=== PATIENT | female | born 1960 | race African-American/Black ===

== ENCOUNTER 2016-06-03 14:17 | Emergency (ER) | payer SELFPAY ==
[~2016-06-03] VITALS: Ht 157.5 cm; Wt 86.2 kg
[~2016-06-03 14:17] MED LIST: AMLO10TA2 PO; BENZ100C PO; CHOL100013 PO; CYCL5TAB PO; HYDR-971 PO; LISI1TAB7 PO; NAPR500T8 PO; PRED50TA PO; PROAIR HFA8.5 GM INH; SOFO1TAB PO
[2016-06-03 14:36] VITALS: BP 164/93
[2016-06-03] MEDS ORDERED: D-ME118S2 PO (15:06)
[2016-06-03] MEDS ORDERED: AZIT250T6 PO (15:06)
[2016-06-03] MEDS ORDERED: PROAIR HFA8.5 GM INH (15:06)
--- NOTE | 2016-06-03 15:07 | PHYS DOC ---
Past Medical History Past Medical History: Hypertension, Hepatitis, Other Additional Past Medical Histor: VITAMIN D DEFICIENCY; Hep C Past Surgical History: Cholecystectomy, , Hysterectomy, Tubal ligation Alcohol Use: Rarely Drug Use: Marijuana Adult General Chief Complaint Chief Complaint: COUGH HPI HPI Patient is a 56 year old female presents emergency Department today reporting a harsh cough is been ongoing for the past 5 days. Patient also reports nasal congestion. She denies fevers, bilateral, chills. Patient denies history of cardiopulmonary disease. She states that she is a nonsmoker. She denies antibiotics within the past 90 days. She denies foreign travel also past 90 days. Patient was hospitalized overnight here approximately 16 days ago for a trauma observation in which she recovered without any complications. Review of Systems Review of Systems Constitutional: Denies fever or chills [] Eyes: Denies change in visual acuity, redness, or eye pain [] HENT: Denies nasal congestion or sore throat [] Respiratory: Denies cough or shortness of breath [] Cardiovascular: No additional information not addressed in HPI [] GI: Denies abdominal pain, nausea, vomiting, bloody stools or diarrhea [] : Denies dysuria or hematuria [] Musculoskeletal: Denies back pain or joint pain [] Integument: Denies rash or skin lesions [] Neurologic: Denies headache, focal weakness or sensory changes [] Endocrine: Denies polyuria or polydipsia [] Allergies Allergies Allergies Coded Allergies Type Severity Reaction Last Updated Verified Latex, Natural Rubber Allergy Intermediate 02/22/16 Yes adhesive Allergy Intermediate 02/22/16 Yes Physical Exam Physical Exam Constitutional: Well developed, well nourished, no acute distress, non-toxic appearance. [] HENT: Normocephalic, atraumatic, bilateral external ears normal, oropharynx moist, no oral exudates, nose normal. [] Eyes: PERRLA, EOMI, conjunctiva normal, no discharge. [] Neck: Normal range of motion, no tenderness, supple, no stridor. [] Cardiovascular:Heart rate regular rhythm, no murmur [] Lungs & Thorax: Bilateral breath sounds clear to auscultation [] Abdomen: Bowel sounds normal, soft, no tenderness, no masses, no pulsatile masses. [] Skin: Warm, dry, no erythema, no rash. [] Back: No tenderness, no CVA tenderness. [] Extremities: No tenderness, no cyanosis, no clubbing, ROM intact, no edema. [] Neurologic: Alert and oriented X 3, normal motor function, normal sensory function, no focal deficits noted. [] Psychologic: Affect normal, judgement normal, mood normal. [] Current Patient Data Vital Signs Vital Signs Date Time Temp Pulse Resp B/P Pulse Ox O2 Delivery O2 Flow Rate FiO2 06/03/16 14:36 100.4 105 24 164/93 96 Room Air 100.4 EKG EKG [] Radiology/Procedures Radiology/Procedures [] Course & Med Decision Making Course & Med Decision Making Pertinent Labs and Imaging studies reviewed. (See chart for details) [] Dragon Disclaimer Dragon Disclaimer This electronic medical record was generated, in whole or in part, using a voice recognition dictation system. Departure Departure Impression: Primary Impression: Bronchitis Disposition: 01 HOME, SELF-CARE Condition: GOOD Referrals: PENNIE COSTELLO (PCP) Patient Instructions: Acute Bronchitis, [id number] Additional Instructions: 1. Take the medications prescribed. 2. Review the discharge instructions provided for self-care and reasons to return the emergency department. 3. Contact your primary care doctor's office in the morning to schedule follow- up appointment to be seen within the next 5-7 days. Scripts Albuterol Sulfate (Proair Hfa Inhaler)8.5 Gm Hfa.aer.ad1 Puff INH PRN Q6HRS PRN SHORTNESS OF BREATH #1 INHALER Ref 0 Prov:CAMILO ALVAREZ 06/03/16 D-Methorphan Hb/Prometh Hcl (Promethazine-Dm Syrup)118 Ml Syrup5 Ml PO PRN Q4HRS COUGH #120 ML Prov:CAMILO ALVAREZ 06/03/16 Azithromycin (Azithromycin Tablet)250 Mg Tablet1 Pkg PO UD #6 TAB Prov:CAMILO ALVAREZ 06/03/16 CAMILO ALVAREZ Jun 03, 2016 15:07
== END 2016-06-03 15:13 | disposition home or self-care (01) ==
LOC: ER 14:17
DX: J40 Bronchitis, not specified as acute or chronic (principal); I10 Essential (primary) hypertension; F12.10 Cannabis abuse, uncomplicated; Z91.040 Latex allergy status; Z91.048 Other nonmedicinal substance allergy status; Z86.19 Personal history of other infectious and parasitic diseases
CPT/HCPCS: 99283

== ENCOUNTER 2017-03-29 07:22 | Emergency (ER) | payer SELFPAY | END 2017-03-29 08:01 | disposition home or self-care (01) | LOC: ER 07:22 | DX: B34.9 Viral infection, unspecified (principal); I10 Essential (primary) hypertension; F12.10 Cannabis abuse, uncomplicated; Z90.49 Acquired absence of other specified parts of digestive tract; Z90.710 Acquired absence of both cervix and uterus; Z98.51 Tubal ligation status; Z91.040 Latex allergy status; Z91.048 Other nonmedicinal substance allergy status | CPT/HCPCS: 99283 ==

== ENCOUNTER 2017-10-30 04:51 | Emergency (ER) | payer SELFPAY ==
[~2017-10-30] VITALS: Ht 157.5 cm; Wt 88.9 kg
[~2017-10-30 04:51] MED LIST changes: +AZIT250T6 PO; +D-ME118S2 PO; +DOCU-109 PO; +HYDR-2758 PO; +LISI10TA2 PO; +OSEL75CA PO
[2017-10-30 04:53] VITALS: BP 154/86
[2017-10-30] MEDS ORDERED: DIPH25CA58 PO (05:10)
[2017-10-30] MEDS ORDERED: FAMO-63 PO (05:10)
--- NOTE | 2017-10-30 05:10 | PHYS DOC ---
Past Medical History Past Medical History: Hypertension, Hepatitis, Other Additional Past Medical Histor: VITAMIN D DEFICIENCY; Hep C Past Surgical History: Cholecystectomy, , Hysterectomy, Tubal ligation Alcohol Use: Rarely Drug Use: None Adult General Chief Complaint Chief Complaint: SKIN PROBLEM HPI HPI 57-year-old female presents with pruritic rash to upper legs and abdomen and back 2 days. Patient reports she recently started taking potassium when her doctor noted she was low on routine labs. Patient also reports she has recently started using Dove soap. Patient also reports she has a puppy at home. Denies fever or chills. Denies that anyone else in her household has similar symptoms. Denies difficulty breathing or sensation that her throat is closing. Review of Systems Review of Systems Constitutional: Denies fever or chills [] Eyes: Denies change in visual acuity, redness, or eye pain [] HENT: Denies nasal congestion or sore throat [] Respiratory: Denies cough or shortness of breath [] Cardiovascular: Denies chest pain or palpitations GI: Denies abdominal pain, nausea, vomiting, or diarrhea [] : Denies dysuria or hematuria [] Musculoskeletal: Denies back pain or joint pain [] Integument: Reports rash and pruritus Neurologic: Denies headache, focal weakness or sensory changes [] Complete systems were reviewed and found to be within normal limits, except as documented in this note. Current Medications Current Medications Current Medications Medications (Trade) Dose Ordered Sig/Varun Start Time Stop Time Status Last Admin Dose Admin Diphenhydramine HCl (Benadryl) 50 mg 1X ONCE 10/30/17 05:30 10/30/17 05:31 10/30/17 05:20 50 MG Famotidine (Pepcid) 20 mg 1X ONCE 10/30/17 05:30 10/30/17 05:31 10/30/17 05:19 20 MG Allergies Allergies Allergies Coded Allergies Type Severity Reaction Last Updated Verified Latex, Natural Rubber Allergy Intermediate 08/16/17 Yes adhesive Allergy Intermediate 08/16/17 Yes Physical Exam Physical Exam Constitutional: Well developed, well nourished, no acute distress, non-toxic appearance. [] HENT: Normocephalic, atraumatic Eyes: conjunctiva normal, no discharge. [] Neck: Normal range of motion, supple, Lungs & Thorax: Atraumatic, no respiratory distress Skin: Warm, dry, urticarial rash to trunk and bilateral upper extremity and bilateral thighs Extremities: No tenderness, ROM intact, no edema. [] Neurologic: Alert and oriented X 3, normal motor function, normal sensory function, no focal deficits noted. [] Psychologic: Affect normal, judgement normal, mood normal. [] Current Patient Data Vital Signs Vital Signs Date Time Temp Pulse Resp B/P (MAP) Pulse Ox O2 Delivery O2 Flow Rate FiO2 10/30/17 04:53 97.6 74 20 154/86 (108) 97 Room Air 97.6 EKG EKG [] Radiology/Procedures Radiology/Procedures [] Course & Med Decision Making Course & Med Decision Making Patient presents with history of present illness and physical exam consistent for urticaria. Patient has several possible allergens. Patient advised to discontinue potassium tablets and to increase potassium intake from food. Patient also advised to discontinue new soap. Patient offered steroid which she refused. Patient therefore treated with antihistamines including Benadryl and Pepcid. No signs of respiratory compromise or involvement. Patient stable for discharge with outpatient follow-up with PCP. Discussed findings and plan with patient and family, who acknowledge understanding and agreement. Dragon Disclaimer Dragon Disclaimer This electronic medical record was generated, in whole or in part, using a voice recognition dictation system. Departure Departure Impression: Primary Impression: Urticaria Disposition: 01 HOME, SELF-CARE Condition: STABLE Referrals: PENNIE COSTELLO (PCP) Patient Instructions: Hives, Potassium Content of Foods Scripts Famotidine (PEPCID) 20 Mg Tablet 20 MG PO BID, #30 TAB Prov: JACE RAMIREZ DO 10/30/17 Diphenhydramine Hcl (BENADRYL) 25 Mg Capsule 25 MG PO Q6HRS PRN for ITCHING, #30 CAP Prov: JACE RAMIREZ DO 10/30/17 JACE RAMIREZ DO Oct 30, 2017 05:10
[2017-10-30] MEDS ORDERED: diphenhydrAMINE HCL 25 MG CAPSULE PO ONE (05:30)
[2017-10-30] MEDS ORDERED: FAMOTIDINE 20 MG TABLET. PO ONE (05:30)
== END 2017-10-30 05:31 | disposition home or self-care (01) ==
LOC: ER 04:51
DX: L50.9 Urticaria, unspecified (principal); I10 Essential (primary) hypertension; Z86.19 Personal history of other infectious and parasitic diseases; Z88.8 Allergy status to other drugs, medicaments and biological substances; Z91.040 Latex allergy status
CPT/HCPCS: 99283; Q0163

== ENCOUNTER 2017-12-05 05:53 | Emergency (ER) | payer SELFPAY ==
[~2017-12-05] VITALS: Ht 157.5 cm; Wt 90.7 kg
[~2017-12-05 05:53] MED LIST changes: -AMLO10TA2 PO; +AMLO10TA6 PO; +DIPH25CA58 PO; +FAMO-63 PO
[2017-12-05 06:15] VITALS: BP 184/98
[2017-12-05] MEDS: HYDROcodone/APAP 5/325MG 1 TAB TABLET PO ONE (06:25)
[2017-12-05] MEDS: CYCLOBENZAPRINE 10 MG TABLET. PO ONE (06:25)
--- NOTE | 2017-12-05 06:34 | RAD ---
Indication:right shoulder pain no known injury TECHNIQUE: 3 views of the right shoulder COMPARISON:None FINDINGS:No acute fracture or dislocation. The acromioclavicular and glenohumeral joints are intact. Visualized right lung is clear. No soft tissue abnormality. IMPRESSION: No acute findings. No significant evidence of arthritic process. Electronically signed by: Robert Tang DO (12/05/2017 6:30 AM) [facility]
--- NOTE | 2017-12-05 06:35 | PHYS DOC ---
Past Medical History Past Medical History: Hypertension, Hepatitis, Other Additional Past Medical Histor: VITAMIN D DEFICIENCY; Hep C Past Surgical History: Cholecystectomy, , Hysterectomy, Tubal ligation Alcohol Use: Rarely Drug Use: None Adult General Chief Complaint Chief Complaint: [facility] HPI Patient is a 57 year old female who presents with right shoulder and trapezius muscle pain over the last 7-10 days. Pain is worse with motion of the right arm and the head. No trauma. Denies similar symptoms previously. No fever/ chills. No chest pain or dyspnea. Denies additional complaints. Review of Systems Review of Systems Constitutional: Denies fever HENT: Denies nasal congestion Respiratory: Denies cough or shortness of breath Cardiovascular: No additional information not addressed in HPI Musculoskeletal: Denies back pain Integument: Denies rash or skin lesions Neurologic: Denies headache All other systems were reviewed and found to be within normal limits, except as documented in this note. Current Medications Current Medications Current Medications Medications (Trade) Dose Ordered Sig/Varun Start Time Stop Time Status Last Admin Dose Admin Acetaminophen/ Hydrocodone Bitart (Lortab 5/325) 1 tab 1X ONCE 12/05/17 06:30 12/05/17 06:31 DC 12/05/17 06:25 1 TAB Cyclobenzaprine HCl (Flexeril) 10 mg 1X ONCE 12/05/17 06:30 12/05/17 06:31 DC 12/05/17 06:25 10 MG Allergies Allergies Allergies Coded Allergies Type Severity Reaction Last Updated Verified Latex, Natural Rubber Allergy Intermediate 08/16/17 Yes adhesive Allergy Intermediate 08/16/17 Yes Physical Exam Physical Exam Constitutional: Well developed, well nourished, no acute distress, non-toxic appearance HENT: Normocephalic, atraumatic, bilateral external ears normal, oropharynx moist Eyes: PERRLA, EOMI, conjunctiva normal Neck: ROM of side bending of head and rotation of the head is limited to the right compared to left 2/2 pain. Cardiovascular:Heart rate regular rhythm, no murmur Lungs & Thorax: Bilateral breath sounds clear to auscultation Skin: Warm, dry, no erythema, no rash Extremities: Patient can ROM the right shoulder but abduction is limited to 90 degrees 2/2 pain. + palpable muscles spasm and TTP over right trapezius muscle. 2+ radial pulses in right UE. 5/5 motor strength. Sensation to light touch intact over all dermatomes Neurologic: Alert and oriented X 3, normal motor function, normal sensory function, no focal deficits Psychologic: Affect normal Current Patient Data Vital Signs Vital Signs Date Time Temp Pulse Resp B/P (MAP) Pulse Ox O2 Delivery O2 Flow Rate FiO2 12/05/17 06:15 98.2 85 18 184/98 (126) 100 Room Air 98.2 EKG EKG NSR. No STEMI Interpretation Time: 06:30 Radiology/Procedures Radiology/Procedures FINDINGS:No acute fracture or dislocation. The acromioclavicular and glenohumeral joints are intact. Visualized right lung is clear. No soft tissue abnormality. IMPRESSION: No acute findings. No significant evidence of arthritic process. Course & Med Decision Making Course & Med Decision Making Pertinent Labs and Imaging studies reviewed. (See chart for details) Patient is seen in the ER for MSK right shoulder pain which she has had for 10- 14 days. Already has scheduled f/u with PCP but states pain was not relieved with OTC meds at home. EKG normal. Trop not elevated. Physical exam consistent with muscle spasm and musculoskeletal pain symptoms. She is give one norco and one flexeril in the ER. Discharged home on the same. Advised to keep her scheduled appointment. Return to ER for new or worsening symptoms. Opiate precautions discussed. Patient is accompanied by her who is driving her home this morning. Dragon Disclaimer Dragon Disclaimer This electronic medical record was generated, in whole or in part, using a voice recognition dictation system. Departure Departure Referrals: NO PCP (PCP) SUBHASH VENTURA DO Dec 05, 2017 06:35
--- NOTE | 2017-12-05 06:45 | EKG ---
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
[2017-12-05] MEDS ORDERED: IBUP-1060 PO (06:48)
[2017-12-05] MEDS ORDERED: HYDR-971 PO (06:48)
[2017-12-05] MEDS ORDERED: CYCL10TA2 PO (06:48)
== END 2017-12-05 06:57 | disposition home or self-care (01) ==
LOC: ER 05:53
DX: M25.511 Pain in right shoulder (principal); M79.601 Pain in right arm; I10 Essential (primary) hypertension; Z90.49 Acquired absence of other specified parts of digestive tract; Z90.710 Acquired absence of both cervix and uterus; Z98.890 Other specified postprocedural states; Z98.51 Tubal ligation status; Z88.8 Allergy status to other drugs, medicaments and biological substances; Z91.040 Latex allergy status
CPT/HCPCS: 73030; 84484; 93005; 99284

== ENCOUNTER 2018-03-27 08:25 | Emergency (ER) | payer SELFPAY ==
[~2018-03-27] VITALS: Ht 157.5 cm; Wt 90.7 kg
[~2018-03-27 08:25] MED LIST changes: +ALBU2.5V8 INH; +CYCL10TA2 PO; -HYDR-2758 PO; +HYDR-2761 PO; +HYDR-3164 PO; -HYDR-971 PO; +IBUP-1060 PO; -PROAIR HFA8.5 GM INH
--- NOTE | 2018-03-27 08:48 | PHYS DOC ---
Past Medical History Past Medical History: Hypertension, Hepatitis, Other Additional Past Medical Histor: VITAMIN D DEFICIENCY; Hep C Past Surgical History: Appendectomy, Cholecystectomy, , Hysterectomy, Tubal ligation Alcohol Use: Rarely Drug Use: None Adult General Chief Complaint Chief Complaint: Congestion HPI HPI 58-year-old female presents to ER with complaints of cold-like symptoms for the past 3 days. Patient states symptoms became worse 2 days ago and she had fever. Patient states she has had productive cough, sinus congestion and drainage, fatigue, and bodyaches. Patient states she has had some chest pain which increases during coughing episodes. She reports she has been trying over-the- counter medications including Advil, Mucinex, and flu medications. Review of Systems Review of Systems Constitutional: Reports fever and generalized fatigue Eyes: Denies change in visual acuity, redness, or eye pain [] HENT: Reports sinus congestion/drainage. Reports sore throat. Denies ear ache Respiratory: Reports prod. cough Cardiovascular: Reports CP which increases w/coughing episodes GI: Denies nausea, vomiting. Reports abd pain which started after coughing episodes. Reports diarrhea : Denies dysuria or hematuria [] Musculoskeletal: Denies back/neck pain or joint pain [] Integument: Denies rash or skin lesions [] Neurologic: Denies headache, focal weakness or sensory changes. Denies dizziness Endocrine: Denies polyuria or polydipsia [] All other systems were reviewed and found to be within normal limits, except as documented in this note. Current Medications Current Medications Current Medications Medications (Trade) Dose Ordered Sig/Varun Start Time Stop Time Status Last Admin Dose Admin Albuterol/ Ipratropium (Duoneb) 3 ml 1X ONCE 03/27/18 08:45 03/27/18 08:46 DC 03/27/18 09:01 3 ML Allergies Allergies Allergies Coded Allergies Type Severity Reaction Last Updated Verified Latex, Natural Rubber Allergy Intermediate 08/16/17 Yes adhesive Allergy Intermediate 08/16/17 Yes Physical Exam Physical Exam Constitutional: Well developed, well nourished, no acute distress, non-toxic appearance. [] HENT: Normocephalic, atraumatic, bilateral ears normal, oropharynx moist- no pharyngeal swelling/erythema, no oral exudates, turbinates swollen w/mild erythema bilat- bilat. nares patent Eyes: Pupils equal, conjunctiva normal, no discharge. [] Neck: Normal range of motion, no tenderness, supple, no stridor/gross adenopathy Cardiovascular: Heart rate regular rhythm, no murmur [] Lungs & Thorax: Bilateral breath sounds clear to auscultation- diminished through all lung wilkes w/less air movement in bases. Resp. equal/nonlabored. Pt speaking in full sentences. No wheezing/rhonchi Abdomen: Bowel sounds normal, soft, no tenderness on palp. Skin: Warm, dry, no erythema, no rash. [] Back: No tenderness, full ROM Extremities: No tenderness, no cyanosis, no clubbing, ROM intact, no edema. [] Neurologic: Alert and oriented X 3, normal motor function, normal sensory function, no focal deficits noted. [] Psychologic: Affect normal, judgement normal, mood normal. [] Current Patient Data Vital Signs Vital Signs Date Time Temp Pulse Resp B/P (MAP) Pulse Ox O2 Delivery O2 Flow Rate FiO2 03/27/18 09:15 78 16 144/74 (97) 97 Room Air 03/27/18 08:29 98.8 98.8 Lab Values Laboratory Tests Test 03/27/18 08:43 Influenza Type A Antigen Negative (NEGATIVE) Influenza Type B Antigen Negative (NEGATIVE) EKG EKG EKG obtained 03/27/18 at [address] Moreno Sinus rhythm Rate 71 No STEMI Radiology/Procedures Radiology/Procedures [PROCEDURE: CHEST PA & LATERAL Chest, 2 views, 03/27/2018: HISTORY: Cough and fever Comparison is made to a study from 03/29/2016. The heart size is normal. There is calcific plaquing of the aorta. There is minimal linear atelectasis in the left lower chest. No acute infiltrate is seen. There is no evidence of pleural fluid. There is a mild right convexity thoracic scoliosis. IMPRESSION: Minimal left basilar linear atelectasis. Electronically signed by: Ricardo Aburto MD (03/27/2018 9:02 AM) [facility] DICTATED and SIGNED BY: RICARDO ABURTO MD DATE: 03/27/18 0901 Course & Med Decision Making Course & Med Decision Making Pertinent Labs and Imaging studies reviewed. (See chart for details) 0920: Patient was evaluated in the ER for cold-like symptoms. Patient had negative flu test and chest x-ray with no acute findings for infiltrates or effusion. EKG with no acute ST elevation or STEMI. Patient received DuoNeb treatment and was offered prednisone she refused any steroid treatment. On reevaluation patient has increased air movement throughout all lung wilkes. Respirations are equal and nonlabored. She denies any chest pain at this time. She remains nontoxic in appearance and vital signs have been stable. Patient was afebrile. Patient continues to have sinus drainage so discussion had regarding [id number] options for treatment discussing that symptoms are probably viral in nature so no antibiotic treatment at this time. Encouraged patient to increase fluids. Patient to follow up with primary care physician in 3-5 days if symptoms persist sooner with any concerns. Education provided on signs and symptoms to return to ER for an discharge instructions were discussed. Test results were discussed with patient. Staff Physician Addendum: I was working in the ER during the course of this patient's visit. I was available for consultation as needed, but I was not directly involved in the care of this patient. Dragon Disclaimer Dragon Disclaimer This electronic medical record was generated, in whole or in part, using a voice recognition dictation system. Departure Departure Impression: Primary Impression: Viral syndrome Additional Impression: Cough Disposition: 01 HOME, SELF-CARE Condition: STABLE Referrals: NO PCP (PCP) Patient Instructions: Cough, Adult, Viral Syndrome Additional Instructions: If symptoms persist follow-up with your primary doctor in 3-5 days- sooner with any concerns. Plenty of water and eat well-balanced meals. Over the counter tylenol and/or ibuprofen as directed on container as needed for pain. Delsym for cough. Saline spray and/or Afrin for nasal congestion/ drainage. All as directed on container. Avoid using nasal spray for more than 3 days. Scripts Albuterol Sulfate (PROAIR HFA INHALER) 8.5 Gm Hfa.aer.ad 1 PUFF INH PRN Q6HRS PRN for COUGH, #1 INHALER 0 Refills Prov: JOSUE LEMON APRN 03/27/18 Problem Qualifiers JOSUE LEMON APRN Mar 27, 2018 08:48 NABILA MORENO MD Mar 27, 2018 10:28
[2018-03-27] MEDS: IPRATRPIUM/ALBUTEROL 0.5/2.5MG 3 ML NEBU. NEB ONE (09:01)
--- NOTE | 2018-03-27 09:06 | EKG ---
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
--- NOTE | 2018-03-27 09:06 | RAD ---
Chest, 2 views, 03/27/2018: HISTORY: Cough and fever Comparison is made to a study from 03/29/2016. The heart size is normal. There is calcific plaquing of the aorta. There is minimal linear atelectasis in the left lower chest. No acute infiltrate is seen. There is no evidence of pleural fluid. There is a mild right convexity thoracic scoliosis. IMPRESSION: Minimal left basilar linear atelectasis. Electronically signed by: Ricardo Aburto MD (03/27/2018 9:02 AM) [facility]
[2018-03-27 09:10] LABS: INFLUENZA A PATIENT NEGATIVE (NEGATIVE); INFLUENZA B PATIENT NEGATIVE (NEGATIVE)
[2018-03-27 09:15] VITALS: BP 144/74
[2018-03-27] MEDS ORDERED: ALBU2.5V8 INH (09:29)
== END 2018-03-27 09:45 | disposition home or self-care (01) ==
LOC: ER 08:25
DX: R05 Cough (principal); R09.81 Nasal congestion; R07.89 Other chest pain; B34.9 Viral infection, unspecified; I10 Essential (primary) hypertension; Z90.49 Acquired absence of other specified parts of digestive tract; Z98.890 Other specified postprocedural states; Z90.710 Acquired absence of both cervix and uterus; Z90.89 Acquired absence of other organs; Z98.51 Tubal ligation status; Z88.8 Allergy status to other drugs, medicaments and biological substances; Z91.040 Latex allergy status
CPT/HCPCS: 71046; 87804; 93005; 94640; 99284; J7620

== ENCOUNTER 2018-09-04 04:09 | Emergency (ER) | payer SELFPAY ==
[~2018-09-04] VITALS: Ht 157.5 cm; Wt 82.6 kg
[~2018-09-04 04:09] MED LIST changes: -AMLO10TA6 PO; +AMLO10TA8 PO
--- NOTE | 2018-09-04 05:04 | PHYS DOC ---
Past Medical History Past Medical History: Hypertension, Hepatitis, Other Additional Past Medical Histor: VITAMIN D DEFICIENCY; Hep C (JOANN NUÑEZ MD) Past Surgical History: Appendectomy, Cholecystectomy, , Hysterectomy, Tubal ligation (JOANN NUÑEZ MD) Alcohol Use: Rarely Drug Use: None (JOANN NUÑEZ MD) Adult General Chief Complaint Chief Complaint: neck pain HPI HPI Patient is a 58 year old female who presents with complaining of neck pain. Patient complaining of gradual onset of neck pain for the last 3 days as a constant pain that getting worse with movements of her head. Patient rated her pain 8/10 that increasing to 10 over 10 with movement of her neck as a sharp pain focal neuro deficit, fever, nausea and vomiting. Patient states she had headaches yesterday that resolved today. Patient states she took left over of muscle relaxant was given to her last year because of neck pain that improvement of her pain. Patient denies history of the same pain, recent URI symptoms, injury. (JOANN NUÑEZ MD) Review of Systems Review of Systems Constitutional: Denies fever or chills [] Eyes: Denies change in visual acuity, redness, or eye pain [] HENT: Denies nasal congestion or sore throat [] Respiratory: Denies cough or shortness of breath [] Cardiovascular: No additional information not addressed in HPI [] GI: Denies abdominal pain, nausea, vomiting, bloody stools or diarrhea [] : Denies dysuria or hematuria [] Musculoskeletal: Denies back pain or joint pain [] Integument: Denies rash or skin lesions [] Neurologic: Reports headache, denies focal weakness or sensory changes [] Endocrine: Denies polyuria or polydipsia [] All other systems were reviewed and found to be within normal limits, except as documented in this note. (JOANN NUÑEZ MD) Current Medications Current Medications Current Medications Medications (Trade) Dose Ordered Sig/Varun Start Time Stop Time Status Last Admin Dose Admin Cyclobenzaprine HCl (Flexeril) 10 mg 1X ONCE 09/04/18 05:30 09/04/18 05:31 DC 09/04/18 05:32 10 MG Fentanyl Citrate (Fentanyl 2ml Vial) 50 mcg 1X ONCE 09/04/18 05:30 09/04/18 05:31 DC 09/04/18 05:33 50 MCG (YESSENIA HOANG DO) Allergies Allergies Allergies Coded Allergies Type Severity Reaction Last Updated Verified Latex, Natural Rubber Allergy Intermediate 08/16/17 Yes adhesive Allergy Intermediate 08/16/17 Yes (YESSENIA HOANG DO) Physical Exam Physical Exam Constitutional: Well developed, well nourished, mild distress, non-toxic appearance. [] HENT: Normocephalic, atraumatic, bilateral external ears normal, oropharynx moist, no oral exudates, nose normal. [] Eyes: PERRLA, EOMI, conjunctiva normal, no discharge. [] Neck: Painful range of of motion, no midline tenderness, bilateral paracervical muscle spasm, supple, no stridor. [] Cardiovascular:Heart rate regular rhythm, no murmur [] Lungs & Thorax: Bilateral breath sounds clear to auscultation [] Abdomen: Bowel sounds normal, soft, no tenderness, no masses, no pulsatile masses. [] Skin: Warm, dry, no erythema, no rash. [] Back: No tenderness, no CVA tenderness. [] Extremities: No tenderness, no cyanosis, no clubbing, ROM intact, no edema. [] Neurologic: Alert and oriented X 3, normal motor function, normal sensory function, no focal deficits noted. [] Psychologic: Affect normal, judgement normal, mood normal. [] (JOANN NUÑEZ MD) Current Patient Data Vital Signs Vital Signs Date Time Temp Pulse Resp B/P (MAP) Pulse Ox O2 Delivery O2 Flow Rate FiO2 09/04/18 06:28 66 14 96 09/04/18 04:36 98.5 156/82 (106) Room Air 98.5 (YESSENIA HOANG DO) Lab Values Laboratory Tests Test 09/04/18 05:24 White Blood Count 5.0 x10^3/uL (4.0-11.0) Red Blood Count 4.46 x10^6/uL (3.50-5.40) Hemoglobin 13.4 g/dL (12.0-15.5) Hematocrit 39.5 % (36.0-47.0) Mean Corpuscular Volume 89 fL (79-100) Mean Corpuscular Hemoglobin 30 pg (25-35) Mean Corpuscular Hemoglobin Concent 34 g/dL (31-37) Red Cell Distribution Width 13.9 % (11.5-14.5) Platelet Count 173 x10^3/uL (140-400) Neutrophils (%) (Auto) 46 % (31-73) Lymphocytes (%) (Auto) 44 % (24-48) Monocytes (%) (Auto) 8 % (0-9) Eosinophils (%) (Auto) 2 % (0-3) Basophils (%) (Auto) 1 % (0-3) Neutrophils # (Auto) 2.3 x10^3uL (1.8-7.7) Lymphocytes # (Auto) 2.2 x10^3/uL (1.0-4.8) Monocytes # (Auto) 0.4 x10^3/uL (0.0-1.1) Eosinophils # (Auto) 0.1 x10^3/uL (0.0-0.7) Basophils # (Auto) 0.0 x10^3/uL (0.0-0.2) Sodium Level 141 mmol/L (136-145) Potassium Level 3.6 mmol/L (3.5-5.1) Chloride Level 105 mmol/L (98-107) Carbon Dioxide Level 26 mmol/L (21-32) Anion Gap 10 (6-14) Blood Urea Nitrogen 24 mg/dL (7-20) H Creatinine 1.0 mg/dL (0.6-1.0) Estimated GFR (Cockcroft-Gault) 68.9 BUN/Creatinine Ratio 24 (6-20) H Glucose Level 110 mg/dL (70-99) H Calcium Level 9.2 mg/dL (8.5-10.1) Total Bilirubin 0.3 mg/dL (0.2-1.0) Aspartate Amino Transferase (AST) 18 U/L (15-37) Alanine Aminotransferase (ALT) 31 U/L (14-59) Alkaline Phosphatase 68 U/L (46-116) Total Protein 7.4 g/dL (6.4-8.2) Albumin 3.7 g/dL (3.4-5.0) Albumin/Globulin Ratio 1.0 (1.0-1.7) Laboratory Tests 09/04/18 05:24 Laboratory Tests 09/04/18 05:24 (YESSENIA HOANG DO) Lab Values Laboratory Tests Test 09/04/18 05:24 White Blood Count 5.0 x10^3/uL (4.0-11.0) Red Blood Count 4.46 x10^6/uL (3.50-5.40) Hemoglobin 13.4 g/dL (12.0-15.5) Hematocrit 39.5 % (36.0-47.0) Mean Corpuscular Volume 89 fL (79-100) Mean Corpuscular Hemoglobin 30 pg (25-35) Mean Corpuscular Hemoglobin Concent 34 g/dL (31-37) Red Cell Distribution Width 13.9 % (11.5-14.5) Platelet Count 173 x10^3/uL (140-400) Neutrophils (%) (Auto) 46 % (31-73) Lymphocytes (%) (Auto) 44 % (24-48) Monocytes (%) (Auto) 8 % (0-9) Eosinophils (%) (Auto) 2 % (0-3) Basophils (%) (Auto) 1 % (0-3) Neutrophils # (Auto) 2.3 x10^3uL (1.8-7.7) Lymphocytes # (Auto) 2.2 x10^3/uL (1.0-4.8) Monocytes # (Auto) 0.4 x10^3/uL (0.0-1.1) Eosinophils # (Auto) 0.1 x10^3/uL (0.0-0.7) Basophils # (Auto) 0.0 x10^3/uL (0.0-0.2) Sodium Level 141 mmol/L (136-145) Potassium Level 3.6 mmol/L (3.5-5.1) Chloride Level 105 mmol/L (98-107) Carbon Dioxide Level 26 mmol/L (21-32) Anion Gap 10 (6-14) Blood Urea Nitrogen 24 mg/dL (7-20) H Creatinine 1.0 mg/dL (0.6-1.0) Estimated GFR (Cockcroft-Gault) 68.9 BUN/Creatinine Ratio 24 (6-20) H Glucose Level 110 mg/dL (70-99) H Calcium Level 9.2 mg/dL (8.5-10.1) Total Bilirubin 0.3 mg/dL (0.2-1.0) Aspartate Amino Transferase (AST) 18 U/L (15-37) Alanine Aminotransferase (ALT) 31 U/L (14-59) Alkaline Phosphatase 68 U/L (46-116) Total Protein 7.4 g/dL (6.4-8.2) Albumin 3.7 g/dL (3.4-5.0) Albumin/Globulin Ratio 1.0 (1.0-1.7) Laboratory Tests 09/04/18 05:24 Laboratory Tests 09/04/18 05:24 (JOANN NUÑEZ MD) EKG EKG [] (JOANN NUÑEZ MD) Radiology/Procedures Radiology/Procedures [] (JOANN NUÑEZ MD) Course & Med Decision Making Course & Med Decision Making Pertinent Labs and Imaging studies are pending. Sign out given to at 0600 for further evaluation and final disposition. Discussed current findings and plan with patient and family, who acknowledge understanding and agreement. (JOANN NUÑEZ MD) Dragon Disclaimer Dragon Disclaimer This electronic medical record was generated, in whole or in part, using a voice recognition dictation system. (JOANN NUÑEZ MD) Departure Departure Impression: Primary Impression: Cervical strain Disposition: HOME, SELF-CARE Condition: IMPROVED Referrals: NO PCP (PCP) Patient Instructions: Cervical Sprain, Cervical Strain and Sprain with Rehab- [facility] Additional Instructions: Take medication as directed. Return to the emergency department with any new or concerning symptoms Scripts Hydrocodone/Apap 5-325 (NORCO 5-325 TABLET) 1 Each Tablet 1 TAB PO PRN Q6HRS PRN for PAIN, #10 TAB 0 Refills Prov: YESSENIA HOANG DO 09/04/18 Methocarbamol (ROBAXIN-750) 750 Mg Tablet 1 TAB PO BID, #60 TAB Prov: YESSENIA HOANG DO 09/04/18 Problem Qualifiers Primary Impression: Cervical strain Encounter type: initial encounter Qualified Codes: S16.1XXA - Strain of muscle, fascia and tendon at neck level, initial encounter JOANN NUÑEZ MD Sep 04, 2018 05:04 YESSENIA HOANG DO Sep 04, 2018 07:07
[2018-09-04] MEDS ORDERED: fentaNYL PF VIAL 100 MCG/2 ML VIAL IV ONE (05:30)
[2018-09-04] MEDS ORDERED: CYCLOBENZAPRINE 10 MG TABLET. PO ONE (05:30)
[2018-09-04 05:39] LABS: BASO % 1 % (0-3); EOS # 0.1 x10^3/uL (0.0-0.7); EOS % 2 % (0-3); HEMATOCRIT 39.5 % (36.0-47.0); HEMOGLOBIN 13.4 g/dL (12.0-15.5); LYMPH # 2.2 x10^3/uL (1.0-4.8); LYMPH % 44 % (24-48); MEAN CORPUSCULAR HEMOGLOBIN 30 pg (25-35); MEAN CORPUSCULAR HGB CONC 34 g/dL (31-37); MEAN CORPUSCULAR VOLUME 89 fL (79-100); MONO # 0.4 x10^3/uL (0.0-1.1); MONO % 8 % (0-9); NEUT # 2.3 x10^3uL (1.8-7.7); NEUT % 46 % (31-73); PLATELET COUNT 173 x10^3/uL (140-400); RED BLOOD COUNT 4.46 x10^6/uL (3.50-5.40); RED CELL DISTRIBUTION WIDTH 13.9 % (11.5-14.5)
[2018-09-04 05:46] LABS: CALCIUM 9.2 mg/dL (8.5-10.1); GFR 68.9; POTASSIUM 3.6 mmol/L (3.5-5.1)
[2018-09-04 05:52] LABS: ALBUMIN 3.7 g/dL (3.4-5.0); TOTAL BILIRUBIN 0.3 mg/dL (0.2-1.0); TOTAL PROTEIN 7.4 g/dL (6.4-8.2)
--- NOTE | 2018-09-04 06:09 | RAD ---
RS Compliance Statement: One or more of the following individualized dose reduction techniques were utilized for this examination: 1. Automated exposure control 2. Adjustment of the mA and/or kV according to patient size 3. Use of iterative reconstruction technique CT head and cervical spine without contrast 09/04/2018 4:56 AM INDICATION: Headache and neck pain COMPARISON: Head and cervical spine CT February 22, 2016 TECHNIQUE: Multiple axial CT images of the head were obtained from skull base through the vertex without intravenous contrast. Multiple axial CT images of the cervical spine were obtained without intravenous contrast. Coronal and sagittal reformats are provided. FINDINGS: Head: Ventricles, sulci and basal cisterns are within normal limits. There is no hydrocephalus. Baugh-white matter differentiation is normal. There is no acute intracranial hemorrhage. There is no mass, mass effect or midline shift. Posterior fossa is normal in appearance. Visualized portions of the orbits are normal. Paranasal sinuses are well aerated. Mastoid air cells are well aerated. Scalp and calvaria are normal. Cervical spine: Alignment of the cervical spine is normal. Skull base is intact. Craniocervical junction is normal in appearance. Atlantoaxial articulation is normal. Vertebral body heights are maintained without evidence for acute fracture. Facet joints are within normal limits. No significant osseous neural foraminal stenosis. No significant osseous spinal canal stenosis. Transverse foramen are intact. There is no prevertebral soft tissue swelling. Thyroid gland is normal in appearance. Visualized portions of the lung apices are normal without evidence for suspicious pulmonary nodule or infiltrate. IMPRESSION: 1. No acute intracranial hemorrhage. 2. No acute fracture or malalignment of the cervical spine. Electronically signed by: Kelly Lucio MD (09/04/2018 6:07 AM) [facility]
[2018-09-04 06:58] VITALS: BP 154/86
[2018-09-04] MEDS ORDERED: METH-38 PO (07:09)
[2018-09-04] MEDS ORDERED: HYDR-3164 PO (07:09)
[2018-09-04] MEDS ORDERED: oxyCODONE/APAP 10/325 1 TAB TABLET PO ONE (07:15)
== END 2018-09-04 07:25 | disposition home or self-care (01) ==
LOC: ER 04:09
DX: S16.1XXA Strain of muscle, fascia and tendon at neck level, initial encounter (principal); R11.2 Nausea with vomiting, unspecified; R50.9 Fever, unspecified; R51 Headache; I10 Essential (primary) hypertension; Z90.89 Acquired absence of other organs; Z90.49 Acquired absence of other specified parts of digestive tract; Z98.890 Other specified postprocedural states; Z90.710 Acquired absence of both cervix and uterus; Z98.51 Tubal ligation status; Z88.8 Allergy status to other drugs, medicaments and biological substances; Z91.040 Latex allergy status; X58.XXXA Exposure to other specified factors, initial encounter; Y93.89 Activity, other specified; Y92.89 Other specified places as the place of occurrence of the external cause; Y99.8 Other external cause status
CPT/HCPCS: 36415; 70450; 72125; 80053; 85025; 96374; 99285; J3010

== ENCOUNTER 2019-02-01 01:02 | Emergency (ER) | payer SELFPAY ==
[~2019-02-01 01:02] MED LIST changes: -D-ME118S2 PO; +LISI1TAB20 PO; -LISI1TAB7 PO; +METH-38 PO; +PROM118S9 PO
[2019-02-01] MEDS ORDERED: HYDROcodone/APAP 5/325MG 1 TAB TABLET ONE (01:28)
[2019-02-01] MEDS ORDERED: HYDROcodone/APAP 5/325MG 1 TAB TABLET PO ONE (02:00)
--- NOTE | 2019-02-01 03:57 | RAD ---
Indication: Pain after twisting TECHNIQUE: 3 views of the left ankle and 3 views of the left foot COMPARISON: None FINDINGS: Ankle: No acute fracture or dislocation. Mild ankle edema noted. Foot: No acute fracture or dislocation. IMPRESSION: As above. Electronically signed by: Robert Tang DO (02/01/2019 3:54 AM) [facility]
--- NOTE | 2019-02-01 03:57 | RAD ---
Indication: Pain after twisting TECHNIQUE: 3 views of the left ankle and 3 views of the left foot COMPARISON: None FINDINGS: Ankle: No acute fracture or dislocation. Mild ankle edema noted. Foot: No acute fracture or dislocation. IMPRESSION: As above. Electronically signed by: Robert Tang DO (02/01/2019 3:54 AM) [facility]
== END 2019-02-01 02:15 | disposition home or self-care (01) ==
LOC: ER 01:02
DX: S99.912A Unspecified injury of left ankle, initial encounter (principal); Z90.89 Acquired absence of other organs; Z98.890 Other specified postprocedural states; X58.XXXA Exposure to other specified factors, initial encounter; Y93.89 Activity, other specified; Y92.89 Other specified places as the place of occurrence of the external cause; Y99.8 Other external cause status
CPT/HCPCS: 29515; 73610; 73630; 99284

== ENCOUNTER 2020-09-03 08:14 | Emergency (ER) | payer OTHER ==
[~2020-09-03] VITALS: Ht 157.5 cm; Wt 77.2 kg
[~2020-09-03 08:14] MED LIST changes: +AMLO-187 PO; -AMLO10TA8 PO; +LISI10TA16 PO; -LISI10TA2 PO; +PROM118S10 PO; -PROM118S9 PO
[2020-09-03] MEDS ORDERED: ALBU2.5V8 IH (09:41)
[2020-09-03] MEDS ORDERED: BENZ100C PO (09:41)
[2020-09-03] MEDS ORDERED: AZIT250T PO (09:41)
--- NOTE | 2020-09-03 09:42 | PHYS DOC ---
Past Medical History Past Medical History: Hypertension, Hepatitis, Other Additional Past Medical Histor: VITAMIN D DEFICIENCY; Hep C Past Surgical History: Appendectomy, Cholecystectomy, , Hysterectomy, Tubal ligation Smoking Status: Current Every Day Smoker Alcohol Use: Occasionally Drug Use: None General Adult EDM: Chief Complaint: COUGH HPI: HPI: 60-year-old female presents with report of productive cough, nasal congestion, and sore throat which has been ongoing for the past 4 days. Reports spouse has similar symptoms. Patient is a smoker. Reports has episodes of bronchitis yearly. Patient denies any chest pain or shortness of air. Denies leg swelling or calf tenderness. Denies nausea or vomiting. Patient denies known exposure to COVID-19. Denies receiving COVID-19 vaccinations. Review of Systems: Review of Systems: Constitutional: Denies fever or chills; reports malaise Eyes: Denies redness or eye pain HENT: Reports nasal congestion and sore throat Respiratory: Reports cough or shortness of breath Cardiovascular: Denies chest pain or palpitations GI: Denies abdominal pain, nausea, or vomiting : Denies dysuria or hematuria Musculoskeletal: Denies back pain or joint pain Integument: Denies rash or skin lesions Neurologic: Denies headache, focal weakness or sensory changes Complete systems were reviewed and found to be within normal limits, except as documented in this note. Heart Score: C/O Chest Pain: N/A Allergies: Allergies: Allergies Coded Allergies Type Severity Reaction Last Updated Verified Latex, Natural Rubber Allergy Intermediate 08/16/17 Yes adhesive Allergy Intermediate 08/16/17 Yes Physical Exam: PE: Constitutional: Well developed, well nourished, no acute distress, non-toxic appearance HENT: Normocephalic, atraumatic, nasal congestion noted, turbinates enlarged bilaterally, no tonsillar exudate noted Eyes: Conjunctiva normal, no discharge Neck: Normal range of motion, no tenderness, supple Lungs & Thorax: No respiratory distress, equal chest rise and fall Abdomen: Soft, no tenderness Skin: Warm, dry, no erythema, no rash Extremities: No tenderness, ROM intact, no edema Neurologic: Alert and oriented X 3, no focal deficits noted Psychologic: Affect normal, judgment normal Current Patient Data: Vital Signs: Vital Signs Date Time Temp Pulse Resp B/P (MAP) Pulse Ox O2 Delivery O2 Flow Rate FiO2 09/03/20 08:39 99.5 77 20 181/92 (121) 100 Room Air 99.5 EKG: EKG: @0842 NSR at 80bpm, NO ST elevation, QRS 76ms, QT/QTc 372/433ms Radiology/Procedures: Radiology/Procedures: PROCEDURE: CHEST AP ONLY EXAM: XR CHEST 1V 09/03/2020 9:40 AM CLINICAL INDICATION: Covid person under investigation COMPARISON: Chest radiograph 03/28/2018 TECHNIQUE: AP view of the chest FINDINGS: The heart and mediastinum are normal. Lungs are well-expanded and clear. No pleural effusion or pneumothorax. No acute osseous abnormality. IMPRESSION: No acute cardiopulmonary abnormality. Electronically signed by: Jody Hackett MD (09/03/2020 10:10 AM) [id number] Course & Med Decision Making: Course & Med Decision Making Pertinent Imaging studies reviewed. (See chart for details) Patient presents with HPI and physical exam concerning for bronchitis. Given pandemic cannot exclude COVID-19. COVID-19 testing offered which patient declined. Patient advised would need to quarantine. Chest x-ray without acute process. Patient also declined symptomatic treatment with oral steroid. VS stable. Prescriptions given for albuterol MDI and Tessalon Perles. A spacer provided in the emergency department. Patient stable for discharge with outpatient follow-up with PCP. Discussed findings and plan with patient and family, who acknowledge understanding and agreement. COVID-19 CRITERIA: The patient was evaluated during the global COVID-19 pandemic, and that diagnosis was suspected/considered upon their initial presentation. Their evaluation, treatment and testing was consistent with current guidelines for patients who present with complaints or symptoms that may be related to COVID-19. Cara Disclaimer: Cara Disclaimer: This electronic medical record was generated, in whole or in part, using a voice recognition dictation system. Departure Departure Impression: Primary Impression: Bronchitis Additional Impression: Suspected 2019 novel coronavirus infection Disposition: HOME / SELF CARE / HOMELESS Condition: STABLE Referrals: NO PCP (PCP) Patient Instructions: Acute Bronchitis, [id number], Smoking Cessation, Tips For Success Additional Instructions: Use over the counter cold and cough remedies. Use humidifier at night when sleeping. You have been tested for or diagnosed with COVID-19. It is an infection caused by a new type of coronavirus. COVID-19 will cause cold-like or mild flu symptoms in most. It can cause more severe symptoms like problems breathing in some. There is no treatment for COVID-19. The body will clear the infection over time. Self-care will help to ease discomfort. Steps to Take: Self-Care Rest as needed. Healthy habits may help you feel better. Steps include: Choose healthy foods including fruits and vegetables. Drink water throughout the day. Get plenty of sleep each night. If you smoke, try to quit. It may ease breathing. Avoid alcohol. Keep Others Healthy The virus can spread to others. Droplets are released every time you sneeze or cough. The droplets can get into the mouth, nose, or eyes of people near you and lead to infection. To lower the chances of spreading COVID-19 to others: Stay at home until your doctor has said it is safe to leave. If you tested positive this will mean staying isolated until both of the following are true: At least 7 days have passed since the start of illness. You are free of fever for at least 72 hours without the use of medicine. During this time: - Avoid public areas, events, or transportation. Do not return to work or school until your doctor has said it is safe to do so. - Call ahead if you need to go to a medical center. Let them know you may have COVID-19. It will help them guide you where to go. They may also ask you to wear a facemask when you come to the office. - If you call for emergency medical services, let them know you may have COVID- 19. While at home: - Try to avoid close contact with others. Stay about 6 feet away. - If possible, spend most of your time in a separate room from others. - Use a face mask if you will be in close contact with others such as sharing a room or vehicle. - Have someone wipe down common surfaces in the home. Use household director of audiology every day on areas like doorknobs, counters, or sinks. - Cough or sneeze into a tissue. Throw the tissue away right after use. If a tissue is not available, cough or sneeze into your elbow. - Wash your hands often. Wash them after sneezing or coughing. Use soap and w ater and wash for at least 20 seconds. Alcohol based hand filter screen cleaner can be used if soap and water is not available. - Do not prepare food for others. Avoid sharing personal items like forks, spoons, or toothbrushes. - Avoid close contact with pets while you are sick. There is no evidence of the virus passing to pets. This is a safety step until more is known about this virus. Isolation can be frustrating. Social interaction can help. Keep in touch with friends and family through phone and tech options. You can still interact with others in your home, just keep a safe distance of about 6 feet. Follow-up: Your doctors office will check in with you to see if there are any changes in your health. You may be asked to keep track of symptoms to share with them. They will also let you know when you are clear to be in public again. Problems to Look Out For: Contact your doctor if your recovery is not going as you expect. Get emergency care if you have problems such as: - Trouble breathing - Nonstop chest pain or pressure - Changes in awareness, confusion, or problems waking - Lips or face have bluish color - Worsening of symptoms If you think you have an emergency, call for emergency medical services right away. As taken from [facility] Script[facility] Benzonatate (TESSALON PERLE) 100 Mg Capsule 1 CAP PO TID PRN for COUGH, #30 CAP Prov: JACE RAMIREZ DO 09/03/20 Albuterol Sulfate (PROAIR HFA INHALER) 8.5 Gm Hfa.aer.ad 2 PUFF IH PRN Q4-6HRS PRN for wheezing for 21 Days, #1 INHALER 0 Refills Prov: JACE RAMIREZ DO 09/03/20 Azithromycin (ZITHROMAX) 250 Mg Tablet 1 PKG PO UD for bronchitis, #6 TAB Take 2 tablets on day 1 and then 1 tablet each day for the next 4 days as directed Prov: JACE RAMIREZ DO 09/03/20 JACE RAMIREZ DO Sep 03, 2020 09:42
--- NOTE | 2020-09-03 10:13 | RAD ---
EXAM: XR CHEST 1V 09/03/2020 9:40 AM CLINICAL INDICATION: Covid person under investigation COMPARISON: Chest radiograph 03/28/2018 TECHNIQUE: AP view of the chest FINDINGS: The heart and mediastinum are normal. Lungs are well-expanded and clear. No pleural effusi on or pneumothorax. No acute osseous abnormality. IMPRESSION: No acute cardiopulmonary abnormality. Electronically signed by: Jody Hackett MD (09/03/2020 10:10 AM) [id number]
[2020-09-03 10:28] VITALS: BP 162/83
== END 2020-09-03 10:28 | disposition home or self-care (01) ==
LOC: ER 08:14
DX: J40 Bronchitis, not specified as acute or chronic (principal); I10 Essential (primary) hypertension; F17.200 Nicotine dependence, unspecified, uncomplicated; Z20.822 Contact with and (suspected) exposure to COVID-19; Z91.040 Latex allergy status; Z88.8 Allergy status to other drugs, medicaments and biological substances
CPT/HCPCS: 71045; 96361; 96374; 96375; 99285; 99284-25